=== PATIENT | female | born 1955 | race Caucasian/White ===

== ENCOUNTER 2017-05-10 09:34 | Day surgery (SDC) | payer MEDICARE ==
[~2017-05-10] VITALS: Ht 170.2 cm; Wt 82.7 kg
--- NOTE | ~2017-05-10 | HP ---
PATIENT: JOSE MARIA BROWER MEDICAL RECORD: [id number] ACCOUNT: [id number] LOCATION:[facility] : 59 ADMISSION DATE: 05/10/17 HISTORY AND PHYSICAL EXAMINATION CHIEF COMPLAINT: Ponce's esophagus. The patient is to undergo EGD with biopsies as a surveillance for Ponce's esophagus. HISTORY OF PRESENT ILLNESS: The patient underwent endoscopy back in February of 2015, which revealed Ponce's esophagus with focal erosion and reactive mild atypia of squamous epithelium, it was negative for dysplasia, however. The risks, possible complications, and alternatives of the procedure were explained to the patient. She elects to proceed. SOCIAL HISTORY: She is a smoker. I have advised her to quit smoking. ALLERGIES: OXYCONTIN as well as PNEUMOCOCCAL VACCINE. HOME MEDICINES: Have been reviewed. PAST MEDICAL AND SURGICAL HISTORY: Angina; coronary stents times 7; gastroesophageal reflux; back surgery; neck surgery; total knee replacement and arthroplasties times 2 on the left and one on the right; hypothyroidism, on replacement therapy; coronary artery disease; hypertension; and bronchitis. PHYSICAL EXAMINATION: GENERAL: The patient does not appear acutely ill. She does appear chronically ill. The entire physical examination was performed in the presence of a female nurse. VITAL SIGNS: Reviewed. EARS: External ears appear normal. EYES: Extraocular movements are intact. NECK: Trachea is midline. CHEST: No intercostal retractions. PULMONARY: Nonlabored. No stridor. ABDOMEN: No peritonitis. IMPRESSION: Ponce's esophagus for surveillance upper endoscopy with biopsies. PLAN: Upper endoscopy with biopsies. TRANSINT:[id number] Voice Confirmation ID: [id number] DOCUMENT ID: [id number] HISTORY AND PHYSICAL [id number] INOCENTEJOSE MARIA KIRA NICOLAS MD at 0938 CC: ROSETTE NARANJO MD [id number] DICTATION DATE: 05/10/17 1207 CRANE OPERATOR CAB: 05/10/17 1242 [facility] 05/10/17 [id number] [place] [address]
--- NOTE | ~2017-05-10 | OP ---
PATIENT NAME: JOSE MARIA BROWER MEDICAL RECORD: [id number] :59 LOCATION:[facility] ADMISSION DATE: SURGEON: BENY MALONE MD DATE OF OPERATION: 05/10/2017 PREOPERATIVE DIAGNOSIS: History of Ponce's esophagus, for surveillance upper endoscopy with biopsies. POSTOPERATIVE DIAGNOSES: History of Ponce's esophagus, for surveillance upper endoscopy with biopsies, with mild prepyloric gastritis. PROCEDURE: Esophagogastroduodenoscopy with antral and distal esophageal biopsies. SURGEON: Beny Malone MD INSTRUMENT MAN: None. BLOOD LOSS: Minimal. ANESTHESIA: IV sedation. COMPLICATIONS: None. The risks, possible complications, and alternatives to the procedure were explained to the patient. She elects to proceed. OPERATIVE COURSE: The patient was seen in the GI lab on 05/10/2017. IV sedation was induced by the anesthesia staff. A bite block was inserted. A gastroscope was inserted into the mouth. It was advanced easily into the hypopharynx. The esophagus was easily intubated as were the stomach and the duodenum. Upon withdrawal, retroflexed and angulus views were obtained. Antral biopsies were obtained. Distal esophageal biopsies were obtained. It appeared that there may have been some regression in the patient's Ponce's esophagus. The endoscope was then withdrawn under direct vision. I will see the patient in my office in 2-3 weeks to review the results of the biopsies. I will plan for her next surveillance upper endoscopy with biopsies to take place in 2 years. TRANSINT:[id number] Voice Confirmation ID: [id number] DOCUMENT ID: [id number] BENY MALONE MD at 0938 CC: ROSETTE NARANJO MD [id number] DICTATION DATE: 05/10/17 1412 PURIFICATION SUPERVISOR: 05/10/17 1504 [facility] 05/10/[address] [facility] [address] [id number]
[~2017-05-10 09:34] MED LIST: ASPIRIN 81 MG E81 MG PO; ASPIRIN325 MG PO; CALAN120 MG PO; CARAFATE1 G PO; COLACE100 MG PO; CRESTOR20 MG PO; FISH OIL 1,0001 CA1 PO; FOLIC ACID1 MG PO; IMDUR60 MG PO; LASIX40 MG PO; NEXIUM20 MG PO; NITROLINGUAL SP12 GM SL; PLAVIX75 MG PO; SYNTHROID125 MCG PO; ZANTAC150 MG PO
[2017-05-10 10:31] LABS: ANION GAP 12.5 mmol/L (8-16); CALCIUM 9.1 mg/dL (8.5-10.1); CARBON DIOXIDE 28.7 mmol/L (21.0-32.0); POTASSIUM - SERUM 4.2 mmol/L (3.5-5.1)
[2017-05-10 10:34] LABS: BASOPHILS 0.3 % (0-2); EOSINOPHILS 5.4 % (0-7); HEMATOCRIT 44.9 % (36.0-48.0); HEMOGLOBIN 15.2 g/dL (12-16); IMMATURE GRANULOCYTES 0.5 % (0-5); LYMPHOCYTES 36.7 % (15-50); MCH 33.2 pg (26.0-34.0); MCHC 33.9 g/dL (31.0-37.0); MEAN PLATELET VOLUME 9.7 fL (7.4-10.4); MONOCYTES 7.9 % (2-11); NEUTROPHILS 49.2 % (40-80); RBC 4.58 10x6/uL (4.00-5.40); RDW 13.1 % (11.5-14.5); WBC 6.1 10x3/uL (4.8-10.8)
[2017-05-10 10:35] LABS: PLATELET COUNT 220 10x3/uL (130-400)
[2017-05-10] MEDS ORDERED: LIPITOR40 MG PO (10:45)
[2017-05-10] MEDS ORDERED: LISINOPRIL10 MG PO (10:47)
[2017-05-10] MEDS ORDERED: K-TAB10 MEQ PO (10:48)
[2017-05-10 11:06] VITALS: BP 96/62; Ht 170.2 cm; Wt 82.7 kg
== END 2017-05-10 13:30 | disposition home or self-care (01) ==
LOC: D.OPS 09:34
PROVIDERS: Anesthesiology
DX: K29.60 Other gastritis without bleeding (principal); F17.200 Nicotine dependence, unspecified, uncomplicated; I25.119 Atherosclerotic heart disease of native coronary artery with unspecified angina pectoris; Z95.5 Presence of coronary angioplasty implant and graft; K21.9 Gastro-esophageal reflux disease without esophagitis; E03.9 Hypothyroidism, unspecified; I10 Essential (primary) hypertension; Z96.653 Presence of artificial knee joint, bilateral; Z88.5 Allergy status to narcotic agent; Z88.7 Allergy status to serum and vaccine